=== PATIENT | male | born 1990 | race Two or more races ===

== ENCOUNTER 2018-12-13 10:33 | Emergency (ER) | payer OTHER ==
[~2018-12-13] VITALS: Ht 162.6 cm; Wt 111.1 kg
[2018-12-13] MEDS ORDERED: IBUPROFEN 800 MG TAB PO ONE (11:15)
[2018-12-13 12:45] VITALS: BP 118/53
== END 2018-12-13 12:52 | disposition home or self-care (01) ==
LOC: ER 10:37
DX: S40.022A Contusion of left upper arm, initial encounter (principal); R07.81 Pleurodynia; F12.90 Cannabis use, unspecified, uncomplicated; V00.831A Fall from motorized mobility scooter, initial encounter; Y93.55 Activity, bike riding; Y99.8 Other external cause status; Y92.89 Other specified places as the place of occurrence of the external cause
CPT/HCPCS: 71101